=== PATIENT | male | born 1980 | race Two or more races ===

== ENCOUNTER 2017-03-16 14:23 | Emergency (ER) | payer MEDICAID ==
[~2017-03-16] VITALS: Ht 172.7 cm; Wt 70.3 kg
[2017-03-16] MEDS ORDERED: UNOBMED (14:39)
[2017-03-16] MEDS ORDERED: Haloperidol 5mg/ml Inj IM ONE (14:45)
[2017-03-16] MEDS ORDERED: DiphenhydrAMINE 50mg/ml Inj IM ONE (14:45)
[2017-03-16] MEDS ORDERED: LORazepam Inj 2mg/ml 1ml IM ONE (14:45)
[2017-03-16] MEDS ORDERED: LORazepam Inj 2mg/ml 1ml ONE (14:45)
[2017-03-16] MEDS ORDERED: Haloperidol 5mg/ml Inj ONE (14:45)
[2017-03-16] MEDS ORDERED: DiphenhydrAMINE 50mg/ml Inj ONE (14:45)
[2017-03-16] MEDS ORDERED: Tetanus/Diptheria/Pertussis Vaccine 0.5ml Syr IM ONE ×2 (14:46→15:45)
[2017-03-16 16:00] VITALS: BP 133/65
[2017-03-16 16:22] LABS: BASOPHILS % (AUTO) 0.8 % (0.0-2.0); MEAN CORPUSCULAR HGB CONC 34.5 G/DL (32.0-36.0); MEAN CORPUSCULAR VOLUME 87 FL (80-99); MEAN PLATELET VOLUME 7.8 FL (6.5-10.1); MONOCYTES % (AUTO) 5.5 % (1.0-10.0); NEUTROPHILS % (AUTO) 63.7 % (45.0-75.0); PLATELET COUNT 278 K/UL (150-450); RED BLOOD COUNT 4.82 M/UL (4.70-6.10); RED CELL DISTRIBUTION WIDTH 11.9 % (11.6-14.8); WHITE BLOOD COUNT 9.9 K/UL (4.8-10.8)
[2017-03-16 16:28] LABS: APPEARANCE,URINE CLEAR; KETONES,URINE NEGATIVE (NEGATIVE); LEUKOCYTE ESTERASE ,URINE NEGATIVE (NEGATIVE); NITRITE,URINE NEGATIVE (NEGATIVE); PH,URINE 6 (4.5-8.0); PROTEIN,URINE NEGATIVE (NEGATIVE); UROBILINOGEN,URINE NORMAL MG/DL (0.0-1.0)
--- NOTE | 2017-03-16 16:36 | Emergency Room Report ---
History of Present Illness General Chief Complaint: Behavioral Complaint Source: Patient, Medical Record, EMS Present Illness HPI 36YOM BIBEMS after was running in traffic. Patient has dried blood on face. Not making eye contact, saying random things without answering questions on HPI Doesnt answer re psych history, medical trauma HPI limited No previous visit here Allergies: Coded Allergies: No Known Allergies (Unverified , 03/16/17) Patient History Past Medical History: unable to obtain Past Surgical History: unable to obtain Family History: unable to obtain Immunizations: UTD Reviewed Nursing Documentation: PMH: Agreed Nursing Documentation-PMH Past Medical History: No Stated History Review of Systems All Other Systems: limited - d/t likely acute psychoses Physical Exam Vital Signs Date Time Temp Pulse Resp B/P Pulse Ox O2 Delivery O2 Flow Rate FiO2 03/16/17 14:11 99.0 111 18 132/84 99 Room Air Sp02 EP Interpretation: reviewed, abnormal General Appearance: normal inspection, alert/responsive, no apparent distress, non-toxic Head: normocephalic, atraumatic Eyes: PERRL, EOMI, lids + conjunctiva normal, other - Right eye ptergium ENT: hearing intact, no angioedema Neck: supple/symm/no masses, no meningismus Respiratory: effort normal, no wheezing, chest symmetrical Cardiovascular: regular rate, rhythm, no edema Cardiovascular #2: 2+ carotid (R), 2+ carotid (L), 2+ dorsalis pedis (R), 2+ dorsalis pedis (L) Gastrointestinal: non-tender, no mass, non-distended, no rebound/guarding, normal bowel sounds Musculoskeletal: gait & station normal, strength & tone normal, normal ROM, non -tender Neurologic: CN II-XII intact, sensory intact, normal speech Psychiatric: normal inspection, no suicidal/homicidal ideation, other - Odd affect Skin: no rash, well hydrated Medical Decision Making Diagnostic Impression: Primary Impression: Behavioral change Additional Impressions: Hypokalemia Alcohol intoxication Qualified Codes: F10.920 - Alcohol use, unspecified with intoxication, uncomplicated Methamphetamine abuse ER Course While in ED, patient bit into palmar aspect of right thumb - tetanus updated - Surgicel placed on wound with pressure dressing - No other signs of trauma - Labs: Utox + for meth. ETOH ~300. HypoK - repleted IV while sedated. PO dose ordered for when awake - CT head negative for acute ICH AMS/behavior change - Required sedation for proper imaging/lab assessment - Likely ETOH, meth - Signed out to Dr Hammond at 7pm for re-eval EKG Diagnostic Results Rate: normal Rhythm: NSR ST Segments: no acute changes Other Impression QTc 472 ASA given to the pt in ED: No Rhythm Strip Diag. Results EP Interpretation: yes Rate: 99 Last Vital Signs Date Time Temp Pulse Resp B/P Pulse Ox O2 Delivery O2 Flow Rate FiO2 03/16/17 16:00 94 16 133/65 100 Room Air 03/16/17 14:11 99.0 Status: improved Referrals: NOT CHOSEN IPA/,REFERRING (PCP) NICOLE MACIAS M.D. Mar 16, 2017 16:36
[2017-03-16 16:42] LABS: ACETAMINOPHEN < 10 ug/mL (10-30); ALANINE AMINOTRANSFERASE 53 U/L (3-41); ALBUMIN/GLOBULIN RATIO 1.5 (1.0-2.7); ALCOHOL 280 mg/dL; ANION GAP 21 (5-15); ASPARTATE AMINO TRANSFERASE 82 U/L (5-40); CALCIUM 9.2 mg/dL (8.6-10.2); CARBON DIOXIDE 22 mEQ/L (20-30); CHLORIDE 95 mEQ/L (98-107); CREATININE 0.8 mg/dL (0.7-1.2); GLOMERULAR FILTRATION RATE > 60 mL/min (>60); HEMOLYSIS 5; POTASSIUM 2.8 mEQ/L (3.4-4.9); SODIUM 138 mEQ/L (135-145); TOTAL PROTEIN 7.5 g/dL (6.6-8.7)
[2017-03-16] MEDS ORDERED: Surgicel 4in x 8in TOPIC ONE (16:45)
[2017-03-16 17:00] VITALS: BP 100/68
[2017-03-16] MEDS ORDERED: KCl 10% 20 mEq/15ml liquid ORAL ONE (17:00)
[2017-03-16] MEDS ORDERED: Tubing IV Cassette IV ONE (17:08)
[2017-03-16 18:00] VITALS: BP 100/64
[2017-03-16 20:41] VITALS: BP 101/65
[2017-03-16 21:46] VITALS: BP 101/65
--- NOTE | 2017-03-17 11:06 | Diagnostic Imaging Report ---
Indication: PAIN STATUS post fall Technique: Continuous helical CT scanning of the head was performed without intravenous contrast material. Axial and coronal 5 mm sections were generated. Radiation dose was minimized using automated exposure control Dose: Total Dose Length Product - DLP [address] Dose Index - CTDIvol(s) 70.38 mGy. Comparison: None Findings: The ventricular system is normal in size and configuration. There is no shift of midline structures. No abnormal extra-axial fluid collections are noted. There is no evidence of intracerebral bleeding. No other abnormal high or low density areas are noted within the brain. There is left maxillary and left ethmoid sinus disease. The right mastoid are hypoplastic. Intact calvarium. Visualized orbits are unremarkable. Impression: Normal CT scan of the head without contrast material. Incidental finding of sinus disease This agrees with the preliminary interpretation provided overnight by Dr. Boothe The CT scanner at [facility] is accredited by the [employer] and the scans are performed using protocols designed to limit radiation exposure to as low as reasonably achievable to attain images of sufficient resolution adequate for diagnostic evaluation.
--- NOTE | 2017-03-23 09:18 | Cardiology Report ---
APPROVED REPORT EKG Measurement Heart [id number] Normal sinus rhythm Possible Left atrial enlargement Nonspecific T wave abnormality Prolonged QT Abnormal ECG
== END 2017-03-16 21:46 | disposition home or self-care (01) ==
LOC: EDBD 14:23 → EMR 14:45
DX: F68.8 Other specified disorders of adult personality and behavior (principal); E87.6 Hypokalemia; F10.920 Alcohol use, unspecified with intoxication, uncomplicated; F15.10 Other stimulant abuse, uncomplicated; F23 Brief psychotic disorder; Z23 Encounter for immunization
CPT/HCPCS: 36415; 70450; 80053; 80300; 80329; 81003; 85025; 90471; 90715; 93005; 96360; 96372; 99284; J1200; J1630; J3480

== ENCOUNTER 2019-06-03 14:45 | Inpatient (IN) | payer MEDICAID ==
[~2019-06-03] VITALS: Ht 172.7 cm; Wt 74.8 kg
[~2019-06-03 14:45] MED LIST: UNOBMED
[2019-06-03 14:57] VITALS: BP 125/80
--- NOTE | 2019-06-03 14:57 | NUR ---
ED Nurse Note: Pt brought in by EMS from the street due to ALOC. Bystander called 911. Pt came in altered and not responding to questions being asked to him. Pt is awake but with flat affect and responsive to painful stimuli, no respiratory distress. Skin is hot touch 102.9 F oral temp.
[2019-06-03] MEDS ORDERED: Sodium Chloride 2,200 ML IVLG ONE (15:00)
[2019-06-03] MEDS ORDERED: Acetaminophen 500mg (ES) tab ORAL ONE (15:00)
[2019-06-03 15:37] LABS: ANION GAP 13 mmol/L (5-15); BLOOD UREA NITROGEN 21 mg/dL (7-18); CALCIUM 9.6 MG/DL (8.5-10.1); CARBON DIOXIDE 25 MMOL/L (21-32); CHLORIDE 106 MMOL/L (98-107); CREATININE 1.6 MG/DL (0.55-1.30); POTASSIUM 4.9 MMOL/L (3.5-5.1); SODIUM 144 MMOL/L (136-145)
[2019-06-03 15:48] LABS: BASOPHILS % (AUTO) 0.7 % (0.0-2.0); EOSINOPHILS % (AUTO) 0.1 % (0.0-3.0); HEMATOCRIT 36.5 % (42.0-52.0); HEMOGLOBIN 13.2 G/DL (14.2-18.0); LYMPHOCYTES % (AUTO) 9.9 % (20.0-45.0); MEAN CORPUSCULAR VOLUME 84 FL (80-99); MONOCYTES % (AUTO) 5.1 % (1.0-10.0); NEUTROPHILS % (AUTO) 84.1 % (45.0-75.0); PLATELET COUNT 281 K/UL (150-450); RED BLOOD COUNT 4.35 M/UL (4.70-6.10); WHITE BLOOD COUNT 11.2 K/UL (4.8-10.8)
[2019-06-03 15:49] LABS: ALANINE AMINOTRANSFERASE 52 U/L (12-78); ALBUMIN/GLOBULIN RATIO 1.3 (1.0-2.7); ALKALINE PHOSPHATASE 98 U/L (46-116); ASPARTATE AMINO TRANSFERASE 26 U/L (15-37); BILIRUBIN,TOTAL 0.3 MG/DL (0.2-1.0); CKMB 0.9 NG/ML (0.0-3.6); CREATINE KINASE 202 U/L (26-308)
--- NOTE | 2019-06-03 15:53 | Diagnostic Imaging Report ---
Indication: Dyspnea Comparison: None A single view chest radiograph was obtained. Findings: No definite infiltrate or pulmonary vascular congestion identified. The heart is borderline enlarged. The bones are unremarkable. Impression: No acute disease
--- NOTE | 2019-06-03 16:04 | Diagnostic Imaging Report ---
Indication: Altered mental status Technique: Contiguous 5 mm thick transaxial imaging of the head obtained in a Siemens Sensation [address] scanner. Soft tissue and bone windows generated. Automatic Exposure Control was utilized. Total Dose length Product (DLP): [address] Dose Index Volume (CTDIvol): 70.38 mGy Comparison: 03/16/2017 Findings: The size and configuration of the cortical sulci, basal cisterns, and ventricles are within normal limits for age. There is no mass effect, midline shift, or edema identified. There is no evidence of acute hemorrhage or abnormal intra-axial or extra-axial fluid collections. The bones and soft tissues are unremarkable. Impression: No mass effect, edema or acute bleed. The CT scanner at [facility] is accredited by the [employer] and the scans are performed using dose optimization techniques as appropriate to a performed exam including Automatic Exposure control.
--- NOTE | 2019-06-03 16:11 | Emergency Room Report ---
History of Present Illness General Chief Complaint: Altered Level of Consciousness Source: Patient Present Illness HPI This patient is brought in by EMS. The patient is unsure why he is brought to the emergency department. He does not recall the events leading up to him being brought to [facility]. Per report by EMS, the patient was altered and unresponsive on the street. A bystander had called 911. The patient denies pain or recent illness. The patient initially denied drug use. However, when I asked this patient why he can have a fever with a temp to 102, he stated that he did smoke something that someone gave him. He was not sure what it was. He denies any pain at this time. He denies abdominal pain. He denies neck pain or headache. 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 He has no specific complaints. Allergies: Coded Allergies: No Known Allergies (Unverified , 03/16/17) Patient History Past Medical History: none Past Surgical History: none Social History: Reports: drug use; Denies: smoking, alcohol use Reviewed Nursing Documentation: PMH: Agreed; PSxH: Agreed Nursing Documentation-PMH History Of Psychiatric Problem: Yes - anxiety Review of Systems All Other Systems: negative except mentioned in HPI Physical Exam Vital Signs Date Time Temp Pulse Resp B/P (MAP) Pulse Ox O2 Delivery O2 Flow Rate FiO2 06/03/19 14:47 102.9 148 18 126/74 (91) 100 Room Air Sp02 EP Interpretation: reviewed, normal General Appearance: no apparent distress, alert, GCS 15, non-toxic Head: normocephalic, atraumatic ENT: hearing grossly normal, normal pharynx, no angioedema, normal voice Neck: full range of motion, supple/symm/no masses Respiratory: chest non-tender, lungs clear, normal breath sounds, no respiratory distress, no retraction, no accessory muscle use, speaking full sentences Cardiovascular #1: no edema, tachycardia Gastrointestinal: normal bowel sounds, non tender, soft, non-distended, no guarding, no rebound Rectal: deferred Musculoskeletal: back normal, gait/station normal, normal range of motion, non- tender Neurologic: alert, oriented x3, responsive, motor strength/tone normal, sensory intact, speech normal Psychiatric: judgement/insight normal, memory normal, mood/affect normal, no suicidal/homicidal ideation Skin: no rash, normal color Medical Decision Making Diagnostic Impression: Primary Impression: Fever Additional Impressions: ELIZABETH (acute kidney injury) Lactic acid acidosis ER Course This patient presents with a temp of 102. He was also tachycardic on arrival. Is found to have a slightly elevated white blood cell count, a significantly elevated lactic acidosis and acute kidney injury. There is no evidence of pneumonia with a normal chest x-ray. The patient's abdomen exam is benign. The patient has no findings on exam concerning for meningitis. There is no skin findings that would make me concerned for a cellulitis. I am unsure of the etiology of the patient's fever and lactic acidosis. I suspect the patient is using illicit drugs. Regardless, I would not anticipate that elevating the patient's temperature. As a precaution, this patient is admitted as he has no follow-up and is living on the [address]. He will be admitted for his fever, acute kidney injury and lactic acidosis. Laboratory Tests Test 06/03/19 15:10 06/03/19 15:50 White Blood Count 11.2 K/UL (4.8-10.8) H Red Blood Count 4.35 M/UL (4.70-6.10) L Hemoglobin 13.2 G/DL (14.2-18.0) L Hematocrit 36.5 % (42.0-52.0) L Mean Corpuscular Volume 84 FL (80-99) Mean Corpuscular Hemoglobin 30.4 PG (27.0-31.0) Mean Corpuscular Hemoglobin Concent 36.2 G/DL (32.0-36.0) H Red Cell Distribution Width 12.0 % (11.6-14.8) Platelet Count 281 K/UL (150-450) Mean Platelet Volume 6.2 FL (6.5-10.1) L Neutrophils (%) (Auto) 84.1 % (45.0-75.0) H Lymphocytes (%) (Auto) 9.9 % (20.0-45.0) L Monocytes (%) (Auto) 5.1 % (1.0-10.0) Eosinophils (%) (Auto) 0.1 % (0.0-3.0) Basophils (%) (Auto) 0.7 % (0.0-2.0) Sodium Level 144 MMOL/L (136-145) Potassium Level 4.9 MMOL/L (3.5-5.1) Chloride Level 106 MMOL/L (98-107) Carbon Dioxide Level 25 MMOL/L (21-32) Anion Gap 13 mmol/L (5-15) Blood Urea Nitrogen 21 mg/dL (7-18) H Creatinine 1.6 MG/DL (0.55-1.30) H Estimate Glomerular Filtration Rate 48.4 mL/min (>60) Glucose Level 189 MG/DL (74-106) H Lactic Acid Level Pending Calcium Level 9.6 MG/DL (8.5-10.1) Total Bilirubin 0.3 MG/DL (0.2-1.0) Aspartate Amino Transferase (AST) 26 U/L (15-37) Alanine Aminotransferase (ALT) 52 U/L (12-78) Alkaline Phosphatase 98 U/L (46-116) Total Creatine Kinase 202 U/L (26-308) Creatine Kinase MB 0.9 NG/ML (0.0-3.6) Creatine Kinase MB Relative Index 0.4 Troponin I 0.025 ng/mL (0.000-0.056) Total Protein 7.2 G/DL (6.4-8.2) Albumin 4.0 G/DL (3.4-5.0) Globulin 3.2 g/dL Albumin/Globulin Ratio 1.3 (1.0-2.7) Serum Alcohol < 3 mg/dL Urine Color Pending Urine Appearance Pending Urine pH Pending Urine Specific [place] Pending Urine Protein Pending Urine Glucose (UA) Pending Urine Ketones Pending Urine Blood Pending Urine Nitrite Pending Urine Bilirubin Pending Urine Urobilinogen Pending Urine Leukocyte Esterase Pending Urine Opiates Screen Pending Urine Barbiturates Screen Pending Phencyclidine (PCP) Screen Pending Urine Amphetamines Screen Pending Urine Benzodiazepines Screen Pending Urine Cocaine Screen Pending Urine Marijuana (THC) Screen Pending Microbiology Date/Time Source Procedure Growth Status 06/03/19 15:10 Nasal Nares - Final Complete 06/03/19 15:10 Nasal Nares - Final Complete EKG Diagnostic Results Rate: tachycardiac Rhythm: other - S.tachycardia ST Segments: no acute changes Rhythm Strip Diag. Results EP Interpretation: yes Rate: 110's Rhythm: no PVC's, no ectopy, other - S.tachycardia Chest X-Ray Diagnostic Results Chest X-Ray Diagnostic Results : Chest X-Ray Ordered: Yes # of Views/Limited/Complete: 1 View Indication: Other EP Interpretation: Yes Interpretation: no consolidation, no effusion, no pneumothorax, no acute cardiopulmonary disease Impression: No acute disease Electronically Signed by: Lisette Lynn DO Last Vital Signs Date Time Temp Pulse Resp B/P (MAP) Pulse Ox O2 Delivery O2 Flow Rate FiO2 06/03/19 14:57 121 20 Room Air 06/03/19 14:47 102.9 126/74 (91) 100 Status: improved Disposition: ADMITTED INPATIENT Condition: Serious Referrals: NOT CHOSEN IPA/,REFERRING (PCP) Lisette Lynn DO Jun 03, 2019 16:11
[2019-06-03 16:22] LABS: APPEARANCE,URINE CLEAR; BILIRUBIN, URINE NEGATIVE (NEGATIVE); GLUCOSE, URINE (UA) NEGATIVE (NEGATIVE); KETONES,URINE 1+ (NEGATIVE); LEUKOCYTE ESTERASE ,URINE 1+ (NEGATIVE); NITRITE,URINE NEGATIVE (NEGATIVE); PH,URINE 5 (4.5-8.0); PROTEIN,URINE 2+ (NEGATIVE); UROBILINOGEN,URINE NORMAL MG/DL (0.0-1.0)
[2019-06-03 16:26] LABS: COLOR,URINE YELLOW
[2019-06-03 17:00] VITALS: BP 118/75
--- NOTE | 2019-06-03 17:31 | NUR ---
ED Nurse Note: Pt provided with juice and sandwich per ER MD order. Pt is AAO x3 at this time and speaks in full sentences. Will continue to assess.
--- NOTE | 2019-06-03 18:21 | NUR ---
ED Nurse Note: Report given to Laura CRAIG of telemetry unit.
--- NOTE | 2019-06-03 18:36 | NUR ---
ED Nurse Note: Pt transferred to Telemetry unit via [facility] with byrne $41 with him and all belongings sent.
--- NOTE | 2019-06-03 18:45 | NUR ---
NURSE NOTES: Reprt received from Swati ZURITA RN.Pt brought to Telemetry per brayden awake ,appears not to be altered mentally, and more alert answering questions appropriately.
--- NOTE | 2019-06-03 19:15 | NUR ---
HAND-OFF: Report given to Sharon Vital RN.
--- NOTE | 2019-06-03 19:25 | NUR ---
NURSE NOTES: Received patient from Cornelius Flores RN. patient is observed resting in bed, AO X3, able to make needs known, denies pain at this time. patient is on room air, tolerating well. no s/sx of respiratory distress noted at this time. conventions reservationist showing sinus tach; no acute cardiac distress noted at this time. IV site is patent and intact, asymptomatic. no skin alterations noted at this time. urinal at bedside. belongings reviewed and noted. bed in lowest position and locked, siderails up X2, call light within reach. will continue to monitor. will contact MD for admission orders.
--- NOTE | 2019-06-03 19:31 | NUR ---
NURSE NOTES: contacted Dr. Camara for admission orders. awaiting call back.
--- NOTE | 2019-06-03 19:32 | NUR ---
NURSE NOTES: received call back from Dr. Camara to contact Dr. Mondragon for admission orders. will follow orders.
--- NOTE | 2019-06-03 19:33 | NUR ---
NURSE NOTES: left message for Dr. Mondragon regarding admission orders. awaiting call back.
[2019-06-03 20:00] VITALS: BP 118/58
[2019-06-03] MEDS ORDERED: Miralax 17gm pkt ORAL PRN (20:00)
[2019-06-03] MEDS ORDERED: Morphine Sulfate 2mg/ml Inj(IV/IM USE ONLY) IVP PRN (20:00)
[2019-06-03] MEDS ORDERED: Albuterol/Ipratropium 3ml neb HHN PRN (20:00)
[2019-06-03] MEDS ORDERED: Nitroglycerin Subl 0.4mg tab SL PRN (20:00)
[2019-06-03] MEDS: Cefepime HCl 2 GM in D5W 110 ML IV SCH (20:55)
[2019-06-03] MEDS: Heparin 5000 units/ml inj SUBQ SCH (20:58)
[2019-06-03 21:39] LABS: ALANINE AMINOTRANSFERASE 44 U/L (12-78); ALBUMIN 3.2 G/DL (3.4-5.0); ALBUMIN/GLOBULIN RATIO 1.1 (1.0-2.7); ALKALINE PHOSPHATASE 89 U/L (46-116); ANION GAP 8 mmol/L (5-15); ASPARTATE AMINO TRANSFERASE 22 U/L (15-37); BILIRUBIN,TOTAL 0.3 MG/DL (0.2-1.0); BLOOD UREA NITROGEN 15 mg/dL (7-18); CALCIUM 8.6 MG/DL (8.5-10.1); CARBON DIOXIDE 27 MMOL/L (21-32); CHLORIDE 111 MMOL/L (98-107); CREATINE KINASE 215 U/L (26-308); PHOSPHORUS 3.8 MG/DL (2.5-4.9); POTASSIUM 3.9 MMOL/L (3.5-5.1); SODIUM 146 MMOL/L (136-145)
[2019-06-03] MEDS ORDERED: Vancomycin 1.5gm Premix IVPB ONE (22:00)
[2019-06-04] VITALS: BP 109/50
[2019-06-04] MEDS ORDERED: Vancomycin 1 GM in D5W 275 ML IV SCH (00:30)
[2019-06-04 04:00] VITALS: BP 125/66
[2019-06-04 07:12] LABS: BASOPHILS % (AUTO) 0.8 % (0.0-2.0); EOSINOPHILS % (AUTO) 1.5 % (0.0-3.0); HEMOGLOBIN 11.3 G/DL (14.2-18.0); LYMPHOCYTES % (AUTO) 22.3 % (20.0-45.0); MEAN CORPUSCULAR VOLUME 90 FL (80-99); MONOCYTES % (AUTO) 9.5 % (1.0-10.0); NEUTROPHILS % (AUTO) 65.9 % (45.0-75.0); PLATELET COUNT 243 K/UL (150-450); RED BLOOD COUNT 3.79 M/UL (4.70-6.10); RED CELL DISTRIBUTION WIDTH 12.9 % (11.6-14.8); WHITE BLOOD COUNT 9.3 K/UL (4.8-10.8)
--- NOTE | 2019-06-04 07:15 | NUR ---
NURSE NOTES: Received report from Sharon CRAIG. Pt in bed awake and no c/o pian. AOX3 and able make needs known. Call light within easy reach. Siderails x2 up for safety. Rhythm with SR noted. No acute distress noted. IV site in RAC 20G running with NS@100ml/hr asymptomatic. Will continue to plan of care.
--- NOTE | 2019-06-04 07:18 | NUR ---
HAND-OFF: Report given to KIARA Noel. patient is in stable condition.
[2019-06-04 07:40] LABS: ALANINE AMINOTRANSFERASE 37 U/L (12-78); ALBUMIN 2.8 G/DL (3.4-5.0); ALKALINE PHOSPHATASE 81 U/L (46-116); ANION GAP 8 mmol/L (5-15); ASPARTATE AMINO TRANSFERASE 21 U/L (15-37); BILIRUBIN,TOTAL 0.3 MG/DL (0.2-1.0); BLOOD UREA NITROGEN 13 mg/dL (7-18); CALCIUM 8.4 MG/DL (8.5-10.1); CARBON DIOXIDE 24 MMOL/L (21-32); CHLORIDE 112 MMOL/L (98-107); CREATININE 0.8 MG/DL (0.55-1.30); SODIUM 144 MMOL/L (136-145)
[2019-06-04 08:00] VITALS: BP 110/61
--- NOTE | 2019-06-04 08:37 | NUR ---
NURSE NOTES: The patient removed potline monitor and saying "i will discharge home today and i do not need the monitor" Explained the importance of potline monitor for the patient in Tele but he refusedx3 and made Dr. Mondragon aware
[2019-06-04] MEDS: Heparin 5000 units/ml inj SUBQ SCH (09:00)
[2019-06-04] MEDS: Cefepime HCl 2 GM in D5W 110 ML IV SCH (09:08)
[2019-06-04] MEDS ORDERED: Vancomycin 750mg/NS 275ml IVPB SCH ×2 (10:00)
[2019-06-04] MEDS ORDERED: CIPRO500 MG/51 PO (10:33)
--- NOTE | 2019-06-04 10:49 | Consultation ---
History of Present Illness General Date patient seen: Jun 04, 2019 Chief Complaint: Altered Level of Consciousness Present Illness HPI 38 year old male without any PMHx is brought in by EMS, since the he was altered and unresponsive on the street. A bystander had called 911. The patient initially denied drug use. However, when I asked this patient why he can have a fever with a temp to 102, he stated that he did smoke something that someone gave him. He was not sure what it was. He denies abdominal pain. He denies neck pain or headache. All he remember is that he vomited and passed out. He is claiming the he ate some Hotdog from a decorator street and building in [facility]. Allergies: Coded Allergies: No Known Allergies (Unverified , 03/16/17) Medication History Scheduled Ciprofloxacin (Cipro), 500 MG PO EVERY 12 HOURS Miscellaneous Medications Unable to Obtain Medications (Unable To Obtain Meds), (Reported) Patient History Healthcare decision maker SELF Resuscitation status Full Code Advanced Directive on File Past Medical/Surgical History Past Medical/Surgical History: (1) No pertinent past medical history Review of Systems All Other Systems: negative except mentioned in HPI Physical Exam General Appearance: WD/WN Lines, tubes and drains: peripheral HEENT: normocephalic Neck: non-tender, normal alignment Respiratory/Chest: chest wall non-tender, normal breath sounds Cardiovascular/Chest: normal peripheral pulses Last 24 Hour Vital Signs Date Time Temp Pulse Resp B/P (MAP) Pulse Ox O2 Delivery O2 Flow Rate FiO2 06/04/19 08:38 96 18 92 Room Air 06/04/19 08:00 97.5 92 18 110/61 (77) 97 06/04/19 04:00 89 06/04/19 04:00 97.7 89 18 125/66 (85) 96 06/04/19 00:00 98.1 98 20 109/50 (69) 96 06/04/19 00:00 98 06/03/19 21:00 Room Air 06/03/19 20:16 Room Air 06/03/19 20:00 98.8 105 20 118/58 (78) 98 06/03/19 20:00 103 06/03/19 18:59 110 06/03/19 18:36 99.9 112 15 122/76 100 Room Air 06/03/19 17:00 99.9 111 16 118/75 98 Room Air 06/03/19 15:45 99.9 06/03/19 14:57 121 20 Room Air 06/03/19 14:57 102.9 121 20 125/80 100 Room Air 06/03/19 14:47 102.9 148 18 126/74 (91) 100 Room Air Intake and Output 06/03/19 06/04/19 18:59 06:59 Intake Total 2200 ml 1579.999 ml Output Total 775 ml Balance 2200 ml 804.999 ml Intake Oral 550 ml IV Total 2200 ml 1029.999 ml Output Urine Total 775 ml # Voids 1 2 Laboratory Tests Test 06/03/19 15:10 06/03/19 15:50 06/03/19 17:05 06/03/19 20:50 White Blood Count 11.2 K/UL (4.8-10.8) H Red Blood Count 4.35 M/UL (4.70-6.10) L Hemoglobin 13.2 G/DL (14.2-18.0) L Hematocrit 36.5 % (42.0-52.0) L Mean Corpuscular Volume 84 FL (80-99) Mean Corpuscular Hemoglobin 30.4 PG (27.0-31.0) Mean Corpuscular Hemoglobin Concent 36.2 G/DL (32.0-36.0) H Red Cell Distribution Width 12.0 % (11.6-14.8) Platelet Count 281 K/UL (150-450) Mean Platelet Volume 6.2 FL (6.5-10.1) L Neutrophils (%) (Auto) 84.1 % (45.0-75.0) H Lymphocytes (%) (Auto) 9.9 % (20.0-45.0) L Monocytes (%) (Auto) 5.1 % (1.0-10.0) Eosinophils (%) (Auto) 0.1 % (0.0-3.0) Basophils (%) (Auto) 0.7 % (0.0-2.0) Sodium Level 144 MMOL/L (136-145) 146 MMOL/L (136-145) H Potassium Level 4.9 MMOL/L (3.5-5.1) 3.9 MMOL/L (3.5-5.1) Chloride Level 106 MMOL/L (98-107) 111 MMOL/L (98-107) H Carbon Dioxide Level 25 MMOL/L (21-32) 27 MMOL/L (21-32) Anion Gap 13 mmol/L (5-15) 8 mmol/L (5-15) Blood Urea Nitrogen 21 mg/dL (7-18) H 15 mg/dL (7-18) Creatinine 1.6 MG/DL (0.55-1.30) H 1.0 MG/DL (0.55-1.30) Estimat Glomerular Filtration Rate 48.4 mL/min (>60) > 60 mL/min (>60) Glucose Level 189 MG/DL (74-106) H 129 MG/DL (74-106) H Lactic Acid Level 5.60 mmol/L (0.4-2.0) H 1.60 mmol/L (0.66-2.22) Calcium Level 9.6 MG/DL (8.5-10.1) 8.6 MG/DL (8.5-10.1) Total Bilirubin 0.3 MG/DL (0.2-1.0) 0.3 MG/DL (0.2-1.0) Aspartate Amino Transf (AST/SGOT) 26 U/L (15-37) 22 U/L (15-37) Alanine Aminotransferase (ALT/SGPT) 52 U/L (12-78) 44 U/L (12-78) Alkaline Phosphatase 98 U/L (46-116) 89 U/L (46-116) Total Creatine Kinase 202 U/L (26-308) 215 U/L (26-308) Creatine Kinase MB 0.9 NG/ML (0.0-3.6) Creatine Kinase MB Relative Index 0.4 Troponin I 0.025 ng/mL (0.000-0.056) Total Protein 7.2 G/DL (6.4-8.2) 6.0 G/DL (6.4-8.2) L Albumin 4.0 G/DL (3.4-5.0) 3.2 G/DL (3.4-5.0) L Globulin 3.2 g/dL 2.8 g/dL Albumin/Globulin Ratio 1.3 (1.0-2.7) 1.1 (1.0-2.7) Serum Alcohol < 3 mg/dL Urine Color Yellow Urine Appearance Clear Urine pH 5 (4.5-8.0) Urine Specific Reading 1.020 (1.005-1.035) Urine Protein 2+ (NEGATIVE) H Urine Glucose (UA) Negative (NEGATIVE) Urine Ketones 1+ (NEGATIVE) H Urine Blood Negative (NEGATIVE) Urine Nitrite Negative (NEGATIVE) Urine Bilirubin Negative (NEGATIVE) Urine Urobilinogen Normal MG/DL (0.0-1.0) Urine Leukocyte Esterase 1+ (NEGATIVE) H Urine RBC 0-2 /HPF (0 - 0) H Urine WBC 2-4 /HPF (0 - 0) Urine Squamous Epithelial Cells None /LPF (NONE/OCC) Urine Bacteria Few /HPF (NONE) Urine Fine Granular Casts 2-4 /LPF (NONE) H Urine Opiates Screen Negative (NEGATIVE) Urine Barbiturates Screen Negative (NEGATIVE) Phencyclidine (PCP) Screen Negative (NEGATIVE) Urine Amphetamines Screen Negative (NEGATIVE) Urine Benzodiazepines Screen Negative (NEGATIVE) Urine Cocaine Screen Negative (NEGATIVE) Urine Marijuana (THC) Screen Negative (NEGATIVE) Osmolality 301 mOsm/kg (297-317) Uric Acid 6.7 MG/DL (2.6-7.2) Phosphorus Level 3.8 MG/DL (2.5-4.9) Magnesium Level 1.9 MG/DL (1.8-2.4) Free Thyroxine 0.63 NG/DL (0.76-1.46) L Test 06/04/19 06:19 White Blood Count 9.3 K/UL (4.8-10.8) Red Blood Count 3.79 M/UL (4.70-6.10) L Hemoglobin 11.3 G/DL (14.2-18.0) L Hematocrit 34.0 % (42.0-52.0) L Mean Corpuscular Volume 90 FL (80-99) Mean Corpuscular Hemoglobin 29.9 PG (27.0-31.0) Mean Corpuscular Hemoglobin Concent 33.4 G/DL (32.0-36.0) Red Cell Distribution Width 12.9 % (11.6-14.8) Platelet Count 243 K/UL (150-450) Mean Platelet Volume 5.9 FL (6.5-10.1) L Neutrophils (%) (Auto) 65.9 % (45.0-75.0) Lymphocytes (%) (Auto) 22.3 % (20.0-45.0) Monocytes (%) (Auto) 9.5 % (1.0-10.0) Eosinophils (%) (Auto) 1.5 % (0.0-3.0) Basophils (%) (Auto) 0.8 % (0.0-2.0) Sodium Level 144 MMOL/L (136-145) Potassium Level 4.0 MMOL/L (3.5-5.1) Chloride Level 112 MMOL/L (98-107) H Carbon Dioxide Level 24 MMOL/L (21-32) Anion Gap 8 mmol/L (5-15) Blood Urea Nitrogen 13 mg/dL (7-18) Creatinine 0.8 MG/DL (0.55-1.30) Estimat Glomerular Filtration Rate > 60 mL/min (>60) Glucose Level 100 MG/DL (74-106) Calcium Level 8.4 MG/DL (8.5-10.1) L Total Bilirubin 0.3 MG/DL (0.2-1.0) Aspartate Amino Transf (AST/SGOT) 21 U/L (15-37) Alanine Aminotransferase (ALT/SGPT) 37 U/L (12-78) Alkaline Phosphatase 81 U/L (46-116) Total Protein 5.7 G/DL (6.4-8.2) L Albumin 2.8 G/DL (3.4-5.0) L Globulin 2.9 g/dL Albumin/Globulin Ratio 1.0 (1.0-2.7) Microbiology Date/Time Source Procedure Growth Status 06/03/19 15:10 Nasal Nares - Final Complete 06/03/19 15:10 Nasal Nares - Final Complete 06/03/19 17:30 Rectum Received Height (Feet): 5 Height (Inches): 8.00 Weight (Pounds): 165 Medications Current Medications Medications (Trade) Dose Ordered Sig/Brent Route PRN Reason Start Time Stop Time Status Last Admin Dose Admin Acetaminophen (Tylenol) 650 mg Q4H PRN ORAL fever (temp>100.5F) 06/03/19 20:00 07/03/19 19:59 Albuterol/ Ipratropium (Albuterol/ Ipratropium) 3 ml Q4H PRN HHN Shortness of Breath 06/03/19 20:00 06/08/19 19:59 Cefepime HCl 2 gm/ Dextrose 110 ml @ 220 mls/hr EVERY 12 HOURS IV 06/03/19 21:00 06/10/19 20:59 06/04/19 09:08 Dextrose (Dextrose 50%) 25 ml Q30M PRN IV Hypoglycemia 06/03/19 20:00 07/03/19 19:59 Dextrose (Dextrose 50%) 50 ml Q30M PRN IV Hypoglycemia 06/03/19 20:00 07/03/19 19:59 Heparin Sodium (Porcine) (Heparin 5000 units/ml) 5,000 units EVERY 12 HOURS SUBQ 06/03/19 21:00 07/03/19 20:59 06/03/19 20:58 Morphine Sulfate (Morphine Sulfate) 2 mg Q4H PRN IVP Moderate Pain (Pain Scale 4-6) 06/03/19 20:00 06/10/19 19:59 Nitroglycerin (Ntg) 0.4 mg Q5M PRN SL Prn Chest Pain 06/03/19 20:00 07/03/19 19:59 Ondansetron HCl (Zofran) 4 mg Q6H PRN IVP Nausea & Vomiting 06/03/19 20:00 07/03/19 19:59 Polyethylene Glycol (Miralax) 17 gm DAILYPRN PRN ORAL Constipation 06/03/19 20:00 07/03/19 19:59 Sodium Chloride 1,000 ml @ 100 mls/hr Q10H IVLG 06/03/19 20:30 07/03/19 20:29 06/04/19 06:36 Temazepam (Restoril) 15 mg HSPRN PRN ORAL Insomnia 06/03/19 20:00 06/10/19 19:59 Vancomycin HCl (Vanco rx to dose) 1 ea DAILY PRN MISC PER RX PROTOCOL 06/03/19 20:30 07/03/19 20:29 Vancomycin HCl 750 mg/Sodium Chloride 275 ml @ 183.333 mls/hr Q12HR@1000,2200 IVPB 06/04/19 10:00 06/09/19 09:59 Assessment/Plan Problem List: (1) Food poisoning ICD Codes: T62.91XA - Toxic effect of unspecified noxious substance eaten as food, accidental (unintentional), initial encounter SNOMED: 93691148 (2) Fever ICD Codes: R50.9 - Fever, unspecified SNOMED: 596121556 Assessment/Plan: pt is afebrile now wbc is normal asymptomatic he wants/ needs to leave now to see his aoc director intelligence officer will dc him with oral abx. Zohra Mondragon MD Jun 04, 2019 10:49
[2019-06-04] MEDS ORDERED: Tubing IV Secondary IV ONE (10:56)
--- NOTE | 2019-06-04 10:57 | NUR ---
Homeless Discharge: Patient is being discharged from medical care. Awake, alert and oriented x4. No c/o pain and no any signs of distress noted. After care instructions, including referral to community resources were given. Patient verbalized understanding of After care instructions; at this time patient does not request equipment or placement and he only accepted his antibiotics Rx. Asked the patient if the patient wants RN to dispense meds from [facility] pharmacy but the patient refused. He said he will visit the the preferred pharmacy. Patient signed patient consent in the medical record for patient destination upon discharge and he will go to [facility] a [place] [facility]. Three token given to the patient. All medical devices such as bus driver/monitor, IV and ID band were removed. Patient ambulated out with all personal belongings with steady gait.
--- NOTE | 2019-06-04 11:38 | NUR ---
Social Work This Sw met with patient who explains he is wanting to leave immediately to visit with his tourist information officer, recently was discharged from being incarcerated, prior to this admission. Patient remains independent, alert/oriented x4 and making his own decisions. Patient denied any mental health or substance abuse concerns (currently does not verbalize any suicidal/homicidal ideations). Patient admits to homelessness, while believing his parole office will be connecting him to housing programs. This SW provided list of homeless resources, shelters, transitional housing, shared housing housing options as well, along with three bus tokens for transportation. Patient has adequate amount of clothing and shoes and received breakfast prior to discharge. No other needs or concerns present at this time.
--- NOTE | 2019-06-05 13:10 | Cardiology Report ---
APPROVED REPORT EKG Measurement Heart [id number] Sinus tachycardia Possible Left atrial enlargement Borderline ECG
--- NOTE | 2019-06-05 22:13 | Discharge Summary ---
Discharge Summary Discharge Summary _ DATE OF ADMISSION: 06/03/2019 DATE OF DISCHARGE: 06/04/2019 Admitting MD : Dr. Sacha Camara DISCHARGED BY: Dr. Zohra Mondragon CONSULTANTS: Dr. Zohra Mondragon BRIEF HOSPITAL COURSE: Patient is a 38-year-old male, with no medical history, was brought in by EMS due to altered mental status and unresponsiveness on the street. A bystander called 911. The patient initially denied drug use. However, when asked why he had high-grade fever, he stated that he did smoke something that someone gave him. He was not sure what it was. He denied abdominal pain. He denied neck pain or headache. All he remember was that he vomited and passed out. He claimed he ate hotdog from a street supervisor store in [facility] [place]. On evaluation at the ED, patient had a temperature of 102. He was tachycardic, heart rate was elevated to 148. Blood pressure was stable. Blood work showed WBC of 11.2. Hemoglobin 13.2 and hematocrit 36.5. Electrolytes were normal. BUN was elevated to 21. Creatinine 1.6. Troponin was negative. Lactic acid elevated to 5.6. Urinalyses showed 1+ leukocyte esterase, 0-2 urine RBC, 2-4 urine WBC, 2-4 granular casts. Urine toxicology was negative. EKG showed sinus tachycardia. Chest x-ray did not show any acute disease. Due to acute kidney injury, fever, and lactic acidosis, patient was admitted to telemetry for further evaluation. He was placed on potline monitor. He was given IV hydration. He was started on IV antibiotics. The following day, patient eventually defervesced. WBC normalized. Blood culture did not isolate any growth. Patient was cleared for discharge. He was seen by social insurance analyst. The treating physician assessed that the patient is medically stable for discharge to an outstretched disposition. FINAL DIAGNOSES: Food poisoning Fever DISPOSITION: Homeless discharge DISCHARGE MEDICATIONS: Refer to Discharge Medication List. DISCHARGE INSTRUCTIONS: Follow-up in a week. I have been assigned to complete a discharge summary on this account, I was not involved with the patient's management.--VASHTI Shafer Jacqueline Robles NP Jun 05, 2019 22:13
== END 2019-06-04 10:57 | disposition home or self-care (01) | DRG 816 ==
LOC: EDBD 14:45 → EMR 15:00 → 2E 16:48 → EDBEDREQ 18:06
DX: T62.8X1A Toxic effect of other specified noxious substances eaten as food, accidental (unintentional), initial encounter (principal); N17.9 Acute kidney failure, unspecified; E87.2 Acidosis; R41.82 Altered mental status, unspecified; Y92.89 Other specified places as the place of occurrence of the external cause; R50.9 Fever, unspecified; Z59.0 Homelessness
CPT/HCPCS: 36415; 70450; 71045; 80053; 80307; 80329; 81003; 82550; 82553; 82962; 83605; 83735; 83930; 84100; 84439; 84484; 84550; 85025; 86710; 87040; 87081; 93005; 94664; 96360; 99285